=== PATIENT | female | born 1955 | race Caucasian/White ===

== ENCOUNTER 2016-08-11 16:17 | Emergency (ER) | payer SELFPAY ==
--- NOTE | 2016-08-11 16:34 | NUR ---
PT [facility], WENT [facility]
[2016-08-12] MEDS ORDERED: ZOLP5TAB2 PO (07:05)
[2016-08-12] MEDS ORDERED: ATEN25TA PO (07:05)
[2016-08-12] MEDS ORDERED: CITA10TA9 PO (07:05)
[2016-08-12] MEDS ORDERED: DOXA4TAB3 PO (07:05)
== END 2016-08-11 16:36 | disposition left against medical advice (07) ==
LOC: ER 16:17
DX: Z53.21 Procedure and treatment not carried out due to patient leaving prior to being seen by health care provider (principal)

== ENCOUNTER 2016-08-11 16:39 | Inpatient (IN) | payer BC, OTHER ==
[~2016-08-11] VITALS: Ht 167.6 cm; Wt 65.8 kg
[2016-08-11] MEDS ORDERED: MAGNESIUM HYDROXIDE 30 ML LIQUID UDC PO PRN (18:00)
[2016-08-11] MEDS ORDERED: LOPERAMIDE HCL 2 MG CAPSULE PO PRN ×2 (18:00)
[2016-08-11] MEDS ORDERED: LORAZEPAM 1 MG TABLET PO PRN (18:00)
[2016-08-11] MEDS ORDERED: ONDANSETRON 4 MG/2 ML VIAL IM PRN (18:00)
[2016-08-11] MEDS ORDERED: MAG HYDROX/AL HYDROX/SIMETH 30 ML LIQUID UDC PO PRN (18:00)
[2016-08-11] MEDS ORDERED: ACETAMINOPHEN 325 MG TABLET PO PRN (18:00)
[2016-08-11] MEDS ORDERED: MIRALAX 17 GM POWD.PACK PO PRN (18:00)
[2016-08-11] MEDS ORDERED: THIAMINE HCL 200 MG/2 ML VIAL IM ONE (18:00)
[2016-08-11] MEDS ORDERED: LORAZEPAM 2 MG/1 ML VIAL IM PRN (18:00)
[2016-08-11] MEDS ORDERED: DICYCLOMINE HCL 20 MG TABLET PO PRN (18:00)
[2016-08-11] MEDS ORDERED: ONDANSETRON ODT 4 MG TAB.RAPDIS SL PRN (18:00)
[2016-08-11 18:22] LABS: BASOPHILS % (AUTO) 0.5 % (0.0-2.0); EOSINOPHILS % (AUTO) 0.9 % (0.0-7.0); HEMATOCRIT 47.3 % (37.0-47.0); LYMPHOCYTES # (AUTO) 0.9 K/uL (0.8-4.8); LYMPHOCYTES % (AUTO) 19.1 % (20.5-51.5); MEAN CORPUSCULAR HEMOGLOBIN 33.3 uug (27.0-31.0); MEAN CORPUSCULAR HGB CONC 35 g/dL (32.0-37.0); MEAN CORPUSCULAR VOLUME 95.5 fL (81.0-99.0); MONOCYTES # (AUTO) 0.5 K/uL (0.1-1.30); MONOCYTES % (AUTO) 11.2 % (0.0-11.0); NEUTROPHILS # (AUTO) 3.2 K/uL (1.8-8.9); NEUTROPHILS % (AUTO) 68.3 % (38.5-71.5); PLATELET COUNT (AUTO) 135 K/uL (150-450); RED BLOOD CELL COUNT(AUTO) 4.95 MIL/uL (4.20-5.40); RED CELL DISTRIBUTION WIDTH 12.6 % (11.5-14.5); WHITE BLOOD COUNT (AUTO) 4.6 K/uL (4.0-11.2)
[2016-08-11 18:27] LABS: HEMOGLOBIN 16.3 g/dL (12.0-16.0)
[2016-08-11 18:30] VITALS: BP 153/95
[2016-08-11 18:46] LABS: ALBUMIN 3.9 g/dL (3.4-5.0); BILIRUBIN,TOTAL 0.6 mg/dL (0.2-1.0); CALCIUM 8.3 mg/dL (8.5-10.1); CREATININE 0.7 mg/dL (0.6-1.3); TOTAL PROTEIN, SERUM 7.3 g/dL (6.4-8.2)
[2016-08-11 18:48] LABS: MAGNESIUM 1.1 mg/dL (1.8-2.4); POTASSIUM 2.8 mmol/L (3.5-5.1); THYROID STIMULATING HORMONE 1.109 mIU/mL (0.358-3.740)
[2016-08-11 18:52] LABS: HIV-1 p24 ANTIGEN NON REACTIVE (NONREACTIVE); HIV-1/2 ANTIBODY NON REACTIVE (NONREACTIVE)
[2016-08-11] MEDS ORDERED: POTASSIUM CHLORIDE 20 MEQ TAB.PRT.SR PO ONE (19:00)
[2016-08-11] MEDS ORDERED: MAGNESIUM OXIDE 400 MG TABLET PO ONE (19:00)
[2016-08-11] MEDS: hydrALAZINE HCL 25 MG TABLET PO PRN (19:04)
[2016-08-11 19:41] LABS: *URINE HCG, QUAL NEGATIVE (NEGATIVE)
[2016-08-11 19:43] LABS: *AMPHETAMINE, URINE NEGATIVE (NEGATIVE); *BARBITURATE, URINE NEGATIVE (NEGATIVE); *CANNABINOID, URINE NEGATIVE (NEGATIVE); *COCCAINE, URINE NEGATIVE (NEGATIVE); *OPIATE, URINE NEGATIVE (NEGATIVE); *PHENCYCLIDINE SCREEN,URINE NEGATIVE (NEGATIVE)
[2016-08-11 20:00] VITALS: BP 152/102
[2016-08-11] MEDS: LORAZEPAM 1 MG TABLET PO PRN ×2 (20:25→23:46)
[2016-08-11] MEDS: MAGNESIUM SULFATE/D5W 100 ML IV SCH ×3 (20:44→23:46)
[2016-08-11 23:46] VITALS: BP 151/83
[2016-08-12] VITALS: BP 151/83
[2016-08-12] MEDS: POTASSIUM CHLORIDE 20 MEQ in IV D5 1/2 NS 1000 ML 1,000 ML IV PRN ×2 (01:06→08:35)
[2016-08-12] MEDS: diphenhydrAMINE 50 MG CAPSULE PO PRN ×2 (02:22→20:46)
[2016-08-12 04:00] VITALS: BP 168/109
[2016-08-12] MEDS: LORAZEPAM 1 MG TABLET PO PRN ×2 (04:12→06:25)
[2016-08-12] MEDS: hydrALAZINE HCL 25 MG TABLET PO PRN ×2 (04:15→08:34)
[2016-08-12] MEDS: IBUPROFEN 400 MG TABLET PO PRN ×2 (06:28→20:46)
[2016-08-12] MEDS ORDERED: ZOLP5TAB2 PO (07:05)
[2016-08-12] MEDS ORDERED: CITA10TA9 PO (07:05)
[2016-08-12] MEDS ORDERED: ATEN25TA PO (07:05)
[2016-08-12] MEDS ORDERED: DOXA4TAB3 PO (07:05)
[2016-08-12 08:00] VITALS: BP 164/107
[2016-08-12] MEDS: LORAZEPAM 1 MG TABLET PO SCH ×4 (08:03→20:46)
[2016-08-12] MEDS: MULTIVITAMINS,THERAPEUTIC TABLET PO SCH (08:03)
[2016-08-12] MEDS: FOLIC ACID 1 MG TABLET PO SCH (08:03)
[2016-08-12] MEDS: THIAMINE HCL 100 MG TABLET PO SCH (08:03)
[2016-08-12 08:48] LABS: BASOPHILS % (AUTO) 0.6 % (0.0-2.0); EOSINOPHILS # (AUTO) 0.1 K/uL (0.0-0.7); EOSINOPHILS % (AUTO) 1.2 % (0.0-7.0); HEMATOCRIT 44.2 % (37.0-47.0); HEMOGLOBIN 15.6 g/dL (12.0-16.0); LYMPHOCYTES # (AUTO) 0.4 K/uL (0.8-4.8); LYMPHOCYTES % (AUTO) 9.5 % (20.5-51.5); MEAN CORPUSCULAR HEMOGLOBIN 33.8 uug (27.0-31.0); MEAN CORPUSCULAR HGB CONC 35 g/dL (32.0-37.0); MEAN CORPUSCULAR VOLUME 95.7 fL (81.0-99.0); MONOCYTES # (AUTO) 0.4 K/uL (0.1-1.30); MONOCYTES % (AUTO) 8.6 % (0.0-11.0); NEUTROPHILS # (AUTO) 3.6 K/uL (1.8-8.9); NEUTROPHILS % (AUTO) 80.1 % (38.5-71.5); PLATELET COUNT (AUTO) 112 K/uL (150-450); RED BLOOD CELL COUNT(AUTO) 4.61 MIL/uL (4.20-5.40); RED CELL DISTRIBUTION WIDTH 12.6 % (11.5-14.5); WHITE BLOOD COUNT (AUTO) 4.5 K/uL (4.0-11.2)
[2016-08-12] MEDS ORDERED: TUBERCULIN,PURIF.PROT.DERIV. 5 TU/0.1 ML TEST ID ONE (09:00)
[2016-08-12 09:06] LABS: CALCIUM 8.6 mg/dL (8.5-10.1); CREATININE 0.7 mg/dL (0.6-1.3); MAGNESIUM 1.5 mg/dL (1.8-2.4); PHOSPHOROUS 3.1 mg/dL (2.5-4.9); POTASSIUM 3.4 mmol/L (3.5-5.1)
[2016-08-12] MEDS ORDERED: POTASSIUM CHLORIDE 20 MEQ TAB.PRT.SR PO ONE (09:45)
[2016-08-12] MEDS ORDERED: ATENOLOL 50 MG TABLET PO ONE (10:00)
[2016-08-12] MEDS: MAGNESIUM SULFATE/D5W 100 ML IV SCH ×3 (10:24→12:56)
[2016-08-12] MEDS: AMLODIPINE 5 MG TABLET PO SCH (10:24)
[2016-08-12] MEDS: IV NS 1000 ML 1,000 ML IV SCH (10:25)
[2016-08-12] MEDS ORDERED: hydrALAZINE HCL 25 MG TABLET PO PRN (13:30)
[2016-08-12] MEDS: hydrALAZINE HCL 50 MG TABLET PO PRN (13:55)
[2016-08-12 13:58] VITALS: BP 170/110
[2016-08-12] MEDS ORDERED: LABETALOL HCL 100 MG TABLET PO ONE (16:15)
[2016-08-12 17:25] VITALS: BP 161/107
[2016-08-12 20:00] VITALS: BP 149/101
[2016-08-12] MEDS: LABETALOL HCL 100 MG TABLET PO SCH (20:46)
[2016-08-13] VITALS: BP 147/103
[2016-08-13] MEDS: IV NS 1000 ML 1,000 ML IV SCH ×4 (00:23→21:38)
[2016-08-13] MEDS: HYDROXYZINE PAMOATE 25 MG CAPSULE PO PRN ×2 (00:23→12:09)
[2016-08-13 04:00] VITALS: BP 148/101
[2016-08-13 06:56] LABS: ALBUMIN 3.2 g/dL (3.4-5.0); BILIRUBIN,DIRECT 0.2 mg/dL (0.0-0.2); CREATININE 0.6 mg/dL (0.6-1.3); MAGNESIUM 1.3 mg/dL (1.8-2.4); POTASSIUM 3.4 mmol/L (3.5-5.1); TOTAL PROTEIN, SERUM 6.4 g/dL (6.4-8.2)
[2016-08-13 07:04] LABS: BASOPHILS # (AUTO) 0.1 K/uL (0.0-8.0); BASOPHILS % (AUTO) 1.2 % (0.0-2.0); EOSINOPHILS # (AUTO) 0.3 K/uL (0.0-0.7); EOSINOPHILS % (AUTO) 6.2 % (0.0-7.0); HEMATOCRIT 42.7 % (31.2-41.9); LYMPHOCYTES # (AUTO) 0.9 K/uL (40.0-85.0); MEAN CORPUSCULAR HEMOGLOBIN 33.5 uug (24.7-32.8); MEAN CORPUSCULAR HGB CONC 35 g/dL (32.3-35.6); MEAN CORPUSCULAR VOLUME 95.5 fL (75.5-95.3); MONOCYTES # (AUTO) 0.4 K/uL (2.0-10.0); NEUTROPHILS # (AUTO) 2.7 K/uL (1.8-8.9); NEUTROPHILS % (AUTO) 63.6 % (38.5-71.5); PLATELET COUNT (AUTO) 101 K/uL (179-408); RED BLOOD CELL COUNT(AUTO) 4.47 MIL/uL (3.63-4.92); RED CELL DISTRIBUTION WIDTH 12.4 % (12.3-17.7); WHITE BLOOD COUNT (AUTO) 4.4 K/uL (3.8-11.8)
[2016-08-13 08:00] VITALS: BP 153/105
[2016-08-13 08:07] LABS: HCV AB <0.1 s/co ratio (0.0-0.9); HEPATITIS B CORE AB, IgM Negative (Negative); HEPATITIS B SURFACE AG Negative (Negative)
[2016-08-13] MEDS: LORAZEPAM 1 MG TABLET PO SCH ×3 (08:29→21:36)
[2016-08-13] MEDS: LABETALOL HCL 100 MG TABLET PO SCH (08:29)
[2016-08-13] MEDS: CITALOPRAM 10 MG TABLET PO SCH (08:30)
[2016-08-13] MEDS: MULTIVITAMINS,THERAPEUTIC TABLET PO SCH (08:30)
[2016-08-13] MEDS: AMLODIPINE 5 MG TABLET PO SCH (08:30)
[2016-08-13] MEDS: THIAMINE HCL 100 MG TABLET PO SCH (08:30)
[2016-08-13] MEDS: FOLIC ACID 1 MG TABLET PO SCH (08:30)
[2016-08-13] MEDS ORDERED: ATENOLOL 50 MG TABLET PO SCH (09:00)
[2016-08-13] MEDS ORDERED: CARVEDILOL 12.5 MG TABLET PO ONE (11:30)
[2016-08-13] MEDS ORDERED: POTASSIUM CHLORIDE 10 MEQ CAPSULE.SA PO ONE ×2 (11:30→21:00)
[2016-08-13] MEDS: LIDOCAINE 5% PATCH TD SCH (11:54)
[2016-08-13] MEDS: MAGNESIUM SULFATE/D5W 100 ML IV SCH ×3 (12:09→15:38)
[2016-08-13 13:00] VITALS: BP 158/117
[2016-08-13] MEDS: hydrALAZINE HCL 50 MG TABLET PO PRN ×2 (13:21→21:37)
[2016-08-13] MEDS ORDERED: AMLODIPINE 2.5 MG TABLET PO ONE (15:00)
[2016-08-13 18:15] VITALS: BP 151/105
[2016-08-13] MEDS: CARVEDILOL 12.5 MG TABLET PO SCH (18:32)
[2016-08-13 20:00] VITALS: BP 139/109
[2016-08-13] MEDS ORDERED: MAGNESIUM OXIDE 400 MG TABLET PO ONE (21:00)
[2016-08-13] MEDS: IBUPROFEN 400 MG TABLET PO PRN (22:23)
[2016-08-13] MEDS: TRAZODONE 50 MG TABLET PO PRN (22:23)
[2016-08-14] VITALS: BP 153/95
[2016-08-14 04:00] VITALS: BP 155/84
[2016-08-14] MEDS: IV NS 1000 ML 1,000 ML IV SCH (05:56)
[2016-08-14] MEDS: CARVEDILOL 12.5 MG TABLET PO SCH (07:30)
[2016-08-14 07:48] LABS: BASOPHILS % (AUTO) 0.8 % (0.0-2.0); EOSINOPHILS # (AUTO) 0.2 K/uL (0.0-0.7); EOSINOPHILS % (AUTO) 3.8 % (0.0-7.0); HEMATOCRIT 43.3 % (31.2-41.9); HEMOGLOBIN 14.9 g/dL (10.9-14.3); LYMPHOCYTES # (AUTO) 0.8 K/uL (40.0-85.0); LYMPHOCYTES % (AUTO) 19.2 % (20.5-51.5); MEAN CORPUSCULAR HEMOGLOBIN 32.9 uug (24.7-32.8); MEAN CORPUSCULAR HGB CONC 34 g/dL (32.3-35.6); MEAN CORPUSCULAR VOLUME 95.8 fL (75.5-95.3); MONOCYTES # (AUTO) 0.5 K/uL (2.0-10.0); MONOCYTES % (AUTO) 10.6 % (0.0-11.0); NEUTROPHILS # (AUTO) 2.9 K/uL (1.8-8.9); NEUTROPHILS % (AUTO) 65.6 % (38.5-71.5); PLATELET COUNT (AUTO) 108 K/uL (179-408); RED BLOOD CELL COUNT(AUTO) 4.53 MIL/uL (3.63-4.92); RED CELL DISTRIBUTION WIDTH 12.5 % (12.3-17.7); WHITE BLOOD COUNT (AUTO) 4.4 K/uL (3.8-11.8)
[2016-08-14 08:00] VITALS: BP 152/99
[2016-08-14] MEDS: MULTIVITAMINS,THERAPEUTIC TABLET PO SCH (08:08)
[2016-08-14] MEDS: FOLIC ACID 1 MG TABLET PO SCH (08:08)
[2016-08-14] MEDS: LIDOCAINE 5% PATCH TD SCH (08:09)
[2016-08-14] MEDS: THIAMINE HCL 100 MG TABLET PO SCH (08:09)
[2016-08-14] MEDS: CITALOPRAM 10 MG TABLET PO SCH (08:09)
[2016-08-14] MEDS: LORAZEPAM 1 MG TABLET PO SCH ×4 (08:09→20:23)
[2016-08-14] MEDS: AMLODIPINE 5 MG TABLET PO SCH (08:09)
[2016-08-14 08:23] LABS: BILIRUBIN,DIRECT 0.2 mg/dL (0.0-0.2); BILIRUBIN,TOTAL 0.8 mg/dL (0.2-1.0); CALCIUM 8.8 mg/dL (8.5-10.1); CREATININE 0.7 mg/dL (0.6-1.3); MAGNESIUM 1.3 mg/dL (1.8-2.4); PHOSPHOROUS 5.3 mg/dL (2.5-4.9); POTASSIUM 4.1 mmol/L (3.5-5.1); TOTAL PROTEIN, SERUM 6.3 g/dL (6.4-8.2)
[2016-08-14 08:46] LABS: FOLIC ACID 13.9 NG/ML (8.6-58.9)
[2016-08-14] MEDS ORDERED: CARVEDILOL 12.5 MG TABLET PO ONE (10:30)
[2016-08-14] MEDS ORDERED: MAGNESIUM OXIDE 400 MG TABLET PO ONE ×2 (10:30→21:00)
[2016-08-14] MEDS: MAGNESIUM SULFATE/D5W 100 ML IV SCH ×4 (11:08→16:37)
[2016-08-14] MEDS: CALCIUM ACETATE 667 MG CAPSULE PO SCH ×2 (11:09→17:22)
[2016-08-14 12:00] VITALS: BP 154/104
[2016-08-14 16:00] VITALS: BP 144/103
[2016-08-14] MEDS: CARVEDILOL 25 MG TABLET PO SCH (17:21)
[2016-08-14 20:00] VITALS: BP 134/86
[2016-08-15] VITALS: BP 148/91
[2016-08-15 04:00] VITALS: BP 146/96
[2016-08-15] MEDS: CARVEDILOL 25 MG TABLET PO SCH ×2 (07:30→17:43)
[2016-08-15] MEDS: CALCIUM ACETATE 667 MG CAPSULE PO SCH (07:30)
[2016-08-15 07:50] LABS: BASOPHILS % (AUTO) 0.8 % (0.0-2.0); EOSINOPHILS # (AUTO) 0.1 K/uL (0.0-0.7); EOSINOPHILS % (AUTO) 2.8 % (0.0-7.0); HEMATOCRIT 39.8 % (31.2-41.9); HEMOGLOBIN 13.6 g/dL (10.9-14.3); LYMPHOCYTES # (AUTO) 0.8 K/uL (40.0-85.0); LYMPHOCYTES % (AUTO) 16.5 % (20.5-51.5); MEAN CORPUSCULAR HEMOGLOBIN 32.7 uug (24.7-32.8); MEAN CORPUSCULAR HGB CONC 34 g/dL (32.3-35.6); MEAN CORPUSCULAR VOLUME 95.8 fL (75.5-95.3); MONOCYTES # (AUTO) 0.8 K/uL (2.0-10.0); MONOCYTES % (AUTO) 15.1 % (0.0-11.0); NEUTROPHILS # (AUTO) 3.3 K/uL (1.8-8.9); NEUTROPHILS % (AUTO) 64.8 % (38.5-71.5); PLATELET COUNT (AUTO) 107 K/uL (179-408); RED BLOOD CELL COUNT(AUTO) 4.15 MIL/uL (3.63-4.92); RED CELL DISTRIBUTION WIDTH 12.4 % (12.3-17.7)
[2016-08-15 08:00] VITALS: BP 150/97
[2016-08-15] MEDS: LIDOCAINE 5% PATCH TD SCH (08:24)
[2016-08-15] MEDS: AMLODIPINE 5 MG TABLET PO SCH (08:24)
[2016-08-15] MEDS: MULTIVITAMINS,THERAPEUTIC TABLET PO SCH (08:24)
[2016-08-15] MEDS: FOLIC ACID 1 MG TABLET PO SCH (08:25)
[2016-08-15] MEDS: LORAZEPAM 1 MG TABLET PO SCH ×3 (08:25→21:21)
[2016-08-15] MEDS: THIAMINE HCL 100 MG TABLET PO SCH (08:25)
[2016-08-15] MEDS: CITALOPRAM 10 MG TABLET PO SCH (08:25)
[2016-08-15 08:26] LABS: ALBUMIN 3.1 g/dL (3.4-5.0); BILIRUBIN,DIRECT 0.2 mg/dL (0.0-0.2); BILIRUBIN,TOTAL 0.8 mg/dL (0.2-1.0); CALCIUM 8.9 mg/dL (8.5-10.1); CREATININE 0.5 mg/dL (0.6-1.3); PHOSPHOROUS 5.6 mg/dL (2.5-4.9); POTASSIUM 3.2 mmol/L (3.5-5.1); TOTAL PROTEIN, SERUM 6.3 g/dL (6.4-8.2)
[2016-08-15 08:28] LABS: MAGNESIUM 1.2 mg/dL (1.8-2.4)
[2016-08-15 08:52] LABS: BAND % (MANUAL) 5 % (0-10); BASOPHILS % (MANUAL) 2 % (0-2); EOSINOPHILS % (MANUAL) 5 % (0-8); LYMPHOCYTES % (MANUAL) 13 % (20-40); MONOCYTES % (MANUAL) 14 % (2-10); NEUTROPHILS % (MANUAL) 61 % (42-75)
[2016-08-15 08:53] LABS: PLATELET ESTIMATE DECRE
[2016-08-15 08:54] LABS: STOMATOCYTES 2+
[2016-08-15] MEDS ORDERED: POTASSIUM CHLORIDE 20 MEQ TAB.PRT.SR PO ONE (09:45)
[2016-08-15] MEDS ORDERED: MAGNESIUM OXIDE 400 MG TABLET PO ONE ×2 (09:45→21:00)
[2016-08-15] MEDS: MAGNESIUM SULFATE/D5W 100 ML IV SCH ×4 (10:36→15:42)
[2016-08-15 12:00] VITALS: BP 137/90
[2016-08-15] MEDS: HYDROXYZINE PAMOATE 25 MG CAPSULE PO PRN (15:47)
[2016-08-15] MEDS: IBUPROFEN 400 MG TABLET PO PRN (15:47)
[2016-08-15 16:00] VITALS: BP 152/104
[2016-08-15 20:00] VITALS: BP 138/88
[2016-08-15] MEDS: CLONIDINE HCL 0.1 MG TABLET PO SCH (21:21)
[2016-08-15 21:36] LABS: CALCIUM 9.1 mg/dL (8.5-10.1); CREATININE 0.8 mg/dL (0.6-1.3); MAGNESIUM 1.6 mg/dL (1.8-2.4); POTASSIUM 3.9 mmol/L (3.5-5.1)
[2016-08-15] MEDS: TRAZODONE 50 MG TABLET PO PRN (23:52)
[2016-08-16] VITALS: BP 147/95
[2016-08-16] MEDS ORDERED: MAGNESIUM SULFATE/D5W 100 ML ONE ×2 (00:09→00:45)
[2016-08-16] MEDS: MAGNESIUM SULFATE/D5W 100 ML IV SCH ×6 (00:20→22:52)
[2016-08-16 04:00] VITALS: BP 115/76
[2016-08-16 07:18] LABS: EOSINOPHILS # (AUTO) 0.1 K/uL (0.0-0.7); EOSINOPHILS % (AUTO) 2.7 % (0.0-7.0); HEMATOCRIT 39.8 % (31.2-41.9); HEMOGLOBIN 13.8 g/dL (10.9-14.3); LYMPHOCYTES # (AUTO) 0.8 K/uL (20.0-40.0); LYMPHOCYTES % (AUTO) 15.9 % (20.5-51.5); MEAN CORPUSCULAR HEMOGLOBIN 33.1 uug (24.7-32.8); MEAN CORPUSCULAR HGB CONC 35 g/dL (32.3-35.6); MEAN CORPUSCULAR VOLUME 95.4 fL (75.5-95.3); MONOCYTES # (AUTO) 0.9 K/uL (2.0-10.0); MONOCYTES % (AUTO) 17.7 % (0.0-11.0); NEUTROPHILS # (AUTO) 3.1 K/uL (1.8-8.9); NEUTROPHILS % (AUTO) 62.7 % (38.5-71.5); PLATELET COUNT (AUTO) 132 K/uL (179-408); RED BLOOD CELL COUNT(AUTO) 4.17 MIL/uL (3.63-4.92); RED CELL DISTRIBUTION WIDTH 12.5 % (12.3-17.7); WHITE BLOOD COUNT (AUTO) 4.9 K/uL (3.8-11.8)
[2016-08-16 07:49] LABS: ALBUMIN 3.2 g/dL (3.4-5.0); BILIRUBIN,DIRECT 0.2 mg/dL (0.0-0.2); BILIRUBIN,TOTAL 0.8 mg/dL (0.2-1.0); CALCIUM 8.8 mg/dL (8.5-10.1); CREATININE 0.6 mg/dL (0.6-1.3); MAGNESIUM 1.6 mg/dL (1.8-2.4); PHOSPHOROUS 4.9 mg/dL (2.5-4.9); POTASSIUM 3.9 mmol/L (3.5-5.1); TOTAL PROTEIN, SERUM 6.7 g/dL (6.4-8.2)
[2016-08-16 08:00] VITALS: BP 139/77
[2016-08-16] MEDS: LIDOCAINE 5% PATCH TD SCH (08:08)
[2016-08-16] MEDS: AMLODIPINE 5 MG TABLET PO SCH (08:08)
[2016-08-16] MEDS: THIAMINE HCL 100 MG TABLET PO SCH (08:09)
[2016-08-16] MEDS: FOLIC ACID 1 MG TABLET PO SCH (08:09)
[2016-08-16] MEDS: CITALOPRAM 10 MG TABLET PO SCH (08:09)
[2016-08-16] MEDS: CARVEDILOL 25 MG TABLET PO SCH ×2 (08:09→18:24)
[2016-08-16] MEDS: MULTIVITAMINS,THERAPEUTIC TABLET PO SCH (08:09)
[2016-08-16] MEDS: CLONIDINE HCL 0.1 MG TABLET PO SCH ×2 (08:09→20:43)
[2016-08-16] MEDS: LORAZEPAM 1 MG TABLET PO SCH ×2 (08:09→20:44)
[2016-08-16 09:20] LABS: EOSINOPHILS % (MANUAL) 1 % (0-8); LYMPHOCYTES % (MANUAL) 16 % (20-40); MONOCYTES % (MANUAL) 12 % (2-10); NEUTROPHILS % (MANUAL) 71 % (42-75)
[2016-08-16 09:21] LABS: PLATELET ESTIMATE ADEQUATE
[2016-08-16] MEDS ORDERED: MAGNESIUM OXIDE 400 MG TABLET PO ONE (10:00)
[2016-08-16 12:00] VITALS: BP 109/72
[2016-08-16 16:00] VITALS: BP 150/85
[2016-08-16 20:00] VITALS: BP 146/81
[2016-08-16] MEDS: IBUPROFEN 400 MG TABLET PO PRN (20:42)
[2016-08-16 21:41] LABS: CALCIUM 8.9 mg/dL (8.5-10.1); CREATININE 0.8 mg/dL (0.6-1.3); MAGNESIUM 1.7 mg/dL (1.8-2.4); POTASSIUM 3.7 mmol/L (3.5-5.1)
[2016-08-16] MEDS ORDERED: MAGNESIUM SULFATE/D5W 400 ML ONE (22:46)
[2016-08-16] MEDS: TRAZODONE 50 MG TABLET PO PRN (22:52)
[2016-08-17] VITALS (7 sets, daily range): BP systolic 124–169; BP diastolic 75–103
[2016-08-17] MEDS: MAGNESIUM SULFATE/D5W 100 ML IV SCH ×3 (00:03→01:50)
[2016-08-17 07:37] LABS: EOSINOPHILS # (AUTO) 0.2 K/uL (0.0-0.7); EOSINOPHILS % (AUTO) 3.6 % (0.0-7.0); HEMOGLOBIN 13.6 g/dL (10.9-14.3); LYMPHOCYTES # (AUTO) 0.8 K/uL (20.0-40.0); LYMPHOCYTES % (AUTO) 17.3 % (20.5-51.5); MEAN CORPUSCULAR HEMOGLOBIN 32.5 uug (24.7-32.8); MEAN CORPUSCULAR HGB CONC 34 g/dL (32.3-35.6); MEAN CORPUSCULAR VOLUME 95.9 fL (75.5-95.3); MONOCYTES # (AUTO) 1.1 K/uL (2.0-10.0); MONOCYTES % (AUTO) 23.3 % (0.0-11.0); NEUTROPHILS # (AUTO) 2.6 K/uL (1.8-8.9); NEUTROPHILS % (AUTO) 54.8 % (38.5-71.5); PLATELET COUNT (AUTO) 160 K/uL (179-408); RED BLOOD CELL COUNT(AUTO) 4.17 MIL/uL (3.63-4.92); RED CELL DISTRIBUTION WIDTH 12.3 % (12.3-17.7); WHITE BLOOD COUNT (AUTO) 4.7 K/uL (3.8-11.8)
[2016-08-17 07:50] LABS: CALCIUM 8.7 mg/dL (8.5-10.1); CREATININE 0.6 mg/dL (0.6-1.3); PHOSPHOROUS 4.7 mg/dL (2.5-4.9); POTASSIUM 3.8 mmol/L (3.5-5.1)
[2016-08-17 07:55] LABS: EOSINOPHILS % (MANUAL) 6 % (0-8); LYMPHOCYTES % (MANUAL) 20 % (20-40); MONOCYTES % (MANUAL) 23 % (2-10); NEUTROPHILS % (MANUAL) 51 % (42-75); PLATELET ESTIMATE ADEQUATE
[2016-08-17] MEDS: MULTIVITAMINS,THERAPEUTIC TABLET PO SCH (08:31)
[2016-08-17] MEDS: CITALOPRAM 10 MG TABLET PO SCH (08:31)
[2016-08-17] MEDS: FOLIC ACID 1 MG TABLET PO SCH (08:31)
[2016-08-17] MEDS: AMLODIPINE 5 MG TABLET PO SCH (08:32)
[2016-08-17] MEDS: CHOLECALCIFEROL 1,000 UNIT TABLET PO SCH (08:32)
[2016-08-17] MEDS: THIAMINE HCL 100 MG TABLET PO SCH (08:32)
[2016-08-17] MEDS: LIDOCAINE 5% PATCH TD SCH (08:33)
[2016-08-17] MEDS: CARVEDILOL 25 MG TABLET PO SCH ×2 (08:35→17:08)
[2016-08-17] MEDS: CLONIDINE HCL 0.1 MG TABLET PO SCH ×2 (09:47→20:10)
[2016-08-17] MEDS: IBUPROFEN 400 MG TABLET PO PRN ×2 (14:14→23:20)
[2016-08-17] MEDS: HYDROXYZINE PAMOATE 25 MG CAPSULE PO PRN (14:18)
[2016-08-17 14:53] LABS: *AMPHETAMINE, URINE NEGATIVE (NEGATIVE); *BARBITURATE, URINE NEGATIVE (NEGATIVE); *CANNABINOID, URINE NEGATIVE (NEGATIVE); *COCCAINE, URINE NEGATIVE (NEGATIVE); *OPIATE, URINE NEGATIVE (NEGATIVE); *PHENCYCLIDINE SCREEN,URINE NEGATIVE (NEGATIVE)
[2016-08-17] MEDS: CEPHALEXIN MONOHYDRATE 250 MG CAPSULE PO SCH (20:48)
[2016-08-17] MEDS: hydrALAZINE HCL 50 MG TABLET PO PRN (20:49)
[2016-08-17] MEDS: LACTOBACILLUS RHAMNOSUS GG 1 EACH CAPSULE PO SCH (20:49)
[2016-08-17] MEDS: TRAZODONE 50 MG TABLET PO PRN (20:54)
[2016-08-17] MEDS ORDERED: MAGNESIUM OXIDE 400 MG TABLET PO ONE (21:00)
[2016-08-17] MEDS ORDERED: Cephalexin Monohydrate PO (22:21)
[2016-08-17] MEDS ORDERED: TRAZ-144 PO (22:21)
[2016-08-17] MEDS ORDERED: HYDR-3895 PO (22:21)
[2016-08-17] MEDS ORDERED: CLON0.1T14 PO (22:21)
[2016-08-17] MEDS ORDERED: LACT1CAP57 PO (22:21)
[2016-08-17] MEDS ORDERED: CARV25TA2 PO (22:21)
[2016-08-17] MEDS ORDERED: CHOL10002 PO (22:21)
[2016-08-17] MEDS ORDERED: AMLO5TAB2 PO (22:21)
[2016-08-17] MEDS ORDERED: Ibuprofen PO (22:21)
[2016-08-18] VITALS: BP 138/87
[2016-08-18] MEDS: HYDROXYZINE PAMOATE 25 MG CAPSULE PO PRN (01:08)
[2016-08-18] MEDS: CEPHALEXIN MONOHYDRATE 250 MG CAPSULE PO SCH (06:39)
[2016-08-18] MEDS: CITALOPRAM 10 MG TABLET PO SCH (08:08)
[2016-08-18] MEDS: THIAMINE HCL 100 MG TABLET PO SCH (08:08)
[2016-08-18] MEDS: CHOLECALCIFEROL 1,000 UNIT TABLET PO SCH (08:08)
[2016-08-18] MEDS: FOLIC ACID 1 MG TABLET PO SCH (08:08)
[2016-08-18] MEDS: CLONIDINE HCL 0.1 MG TABLET PO SCH (08:08)
[2016-08-18] MEDS: MULTIVITAMINS,THERAPEUTIC TABLET PO SCH (08:08)
[2016-08-18] MEDS: LACTOBACILLUS RHAMNOSUS GG 1 EACH CAPSULE PO SCH (08:09)
[2016-08-18] MEDS: CARVEDILOL 25 MG TABLET PO SCH (08:09)
[2016-08-18] MEDS: AMLODIPINE 5 MG TABLET PO SCH (08:09)
[2016-08-18] MEDS: LIDOCAINE 5% PATCH TD SCH (08:15)
[2016-08-18 08:51] VITALS: BP 151/100
[2016-08-19] MEDS ORDERED: MAGNESIUM OXIDE 400 MG TABLET PO ONE (09:00)
== END 2016-08-18 09:33 | disposition other institution (70) | DRG 895 ==
LOC: MERGE 16:44 → SRC 16:44
PROVIDERS: ADMIT Internal Medicine; ATTEND Internal Medicine
PROC: HZ2ZZZZ Detoxification Services for Substance Abuse Treatment (ICD-10-PCS; principal; 2016-08-11)
PROC: HZ31ZZZ Individual Counseling for Substance Abuse Treatment, Behavioral (ICD-10-PCS; 2016-08-13)
PROC: HZ41ZZZ Group Counseling for Substance Abuse Treatment, Behavioral (ICD-10-PCS; 2016-08-15)
DX: F10.230 Alcohol dependence with withdrawal, uncomplicated (principal); F33.1 Major depressive disorder, recurrent, moderate; E87.1 Hypo-osmolality and hyponatremia; L03.113 Cellulitis of right upper limb; F10.220 Alcohol dependence with intoxication, uncomplicated; K70.10 Alcoholic hepatitis without ascites; G62.1 Alcoholic polyneuropathy; Y90.8 Blood alcohol level of 240 mg/100 ml or more; Z88.1 Allergy status to other antibiotic agents; E78.5 Hyperlipidemia, unspecified; F41.9 Anxiety disorder, unspecified; S09.90XA Unspecified injury of head, initial encounter; W06.XXXA Fall from bed, initial encounter; Z91.81 History of falling; Y92.009 Unspecified place in unspecified non-institutional (private) residence as the place of occurrence of the external cause; S00.11XA Contusion of right eyelid and periocular area, initial encounter; E55.9 Vitamin D deficiency, unspecified; E83.42 Hypomagnesemia; E86.0 Dehydration; I95.1 Orthostatic hypotension; G47.00 Insomnia, unspecified; F17.210 Nicotine dependence, cigarettes, uncomplicated; E87.6 Hypokalemia; D69.6 Thrombocytopenia, unspecified; E83.39 Other disorders of phosphorus metabolism; R07.81 Pleurodynia; Z79.899 Other long term (current) drug therapy; Z81.8 Family history of other mental and behavioral disorders; Z81.1 Family history of alcohol abuse and dependence; Z80.6 Family history of leukemia; I10 Essential (primary) hypertension; M70.21 Olecranon bursitis, right elbow
CPT/HCPCS: 36415; 70030-TC; 71010; 80307; 82306; 82746; 83550; 83690; 83735; 84100; 84443; 84703; 85025; 86580; 86592; 86705; 86803; 87340; 87806; 93005; 97001; 97116; 97530; G6040-TC; J3411; J3475; J3480; J3490; J7030; Q0163

== ENCOUNTER 2016-08-11 21:06 | Outpatient (CLI) | payer BC, OTHER ==
[2016-08-12] MEDS ORDERED: DOXA4TAB3 PO (07:05)
[2016-08-12] MEDS ORDERED: ZOLP5TAB2 PO (07:05)
[2016-08-12] MEDS ORDERED: CITA10TA9 PO (07:05)
[2016-08-12] MEDS ORDERED: ATEN25TA PO (07:05)
[2016-08-17] MEDS ORDERED: Cephalexin Monohydrate PO (22:21)
[2016-08-17] MEDS ORDERED: HYDR-3895 PO (22:21)
[2016-08-17] MEDS ORDERED: CARV25TA2 PO (22:21)
[2016-08-17] MEDS ORDERED: Ibuprofen PO (22:21)
[2016-08-17] MEDS ORDERED: AMLO5TAB2 PO (22:21)
[2016-08-17] MEDS ORDERED: LACT1CAP57 PO (22:21)
[2016-08-17] MEDS ORDERED: TRAZ-144 PO (22:21)
[2016-08-17] MEDS ORDERED: CHOL10002 PO (22:21)
[2016-08-17] MEDS ORDERED: CLON0.1T14 PO (22:21)
== END 2016-08-11 23:59 | disposition other institution (70) ==
LOC: MERGE 21:06 → CT 21:06
PROVIDERS: ATTEND Internal Medicine
DX: S00.11XA Contusion of right eyelid and periocular area, initial encounter (principal); X58.XXXA Exposure to other specified factors, initial encounter; Y93.89 Activity, other specified; Y92.89 Other specified places as the place of occurrence of the external cause; Y99.8 Other external cause status
CPT/HCPCS: 70450